=== PATIENT | female | born 1945 | race Caucasian/White ===

== ENCOUNTER 2024-02-04 15:14 | Emergency (ER) | payer OTHER ==
[2024-02-04] MEDS ORDERED: DERMABOND SKIN ADHESIVE TOP ONE (15:23)
--- NOTE | 2024-02-04 15:47 | EDPHYS ---
Physician Documentation [facility] Name: Inge Causey Age: 78 yrs Sex: Female : 1945 Arrival Date: 02/04/2024 Time: 15:14 Bed DIS9 Private MD: ED Physician Spenser Reynaga HPI: 02/03 15:40 This 78 yrs old Female presents to ER via EMS with complaints of left lower santos extremity varicose bleeding. Historical: - Allergies: 15:17 PENICILLINS; ap3 15:17 Tetracycline; ap3 - Home Meds: 15:17 Eliquis oral [Active]; ap3 - Immunization history:: Flu vaccine is up to date. - Infectious Disease History:: Denies. - Social history:: Smoking status: Patient denies any tobacco usage or history of. ROS: 15:41 Constitutional: Negative for fever, chills, and weight loss, Eyes: Negative for injury, santos pain, redness, and discharge, ENT: Negative for injury, pain, and discharge, Neck: Negative for injury, pain, and swelling, Cardiovascular: Negative for chest pain, palpitations, and edema, Respiratory: Negative for shortness of breath, cough, wheezing, and pleuritic chest pain, Abdomen/GI: Negative for abdominal pain, nausea, vomiting, diarrhea, and constipation, Back: Negative for injury and pain, : Negative for injury, bleeding, discharge, and swelling, Skin: Negative for injury, rash, and discoloration, Neuro: Negative for headache, weakness, numbness, tingling, and seizure, Psych: Negative for depression, anxiety, suicide ideation, homicidal ideation, and hallucinations, Allergy/Immunology: Negative for hives, rash, and allergies, Endocrine: Negative for neck swelling, polydipsia, polyuria, polyphagia, and marked weight changes, Hematologic/Lymphatic: Negative for swollen nodes, abnormal bleeding, and unusual bruising, 15:41 MS/extremity: Positive for of the left medial malleolus, bleeding vaicose, Exam: 15:41 Constitutional: This is a well developed, well nourished patient who is awake, alert, santos and in no acute distress. Head/Face: Normocephalic, atraumatic. Eyes: Pupils equal round and reactive to light, extra-ocular motions intact. Lids and lashes normal. Conjunctiva and sclera are non-icteric and not injected. Cornea within normal limits. Periorbital areas with no swelling, redness, or edema. ENT: Nares patent. No nasal discharge, no septal abnormalities noted. Tympanic membranes are normal and external auditory canals are clear. Oropharynx with no redness, swelling, or masses, exudates, or evidence of obstruction, uvula midline. Mucous membranes moist. Neck: Trachea midline, no thyromegaly or masses palpated, and no cervical lymphadenopathy. Supple, full range of motion without nuchal rigidity, or vertebral point tenderness. No Meningismus. Chest/axilla: Normal chest wall appearance and motion. Nontender with no deformity. No lesions are appreciated. Cardiovascular: Regular rate and rhythm with a normal S1 and S2. No gallops, murmurs, or rubs. Normal PMI, no JVD. No pulse deficits. Respiratory: Lungs have equal breath sounds bilaterally, clear to auscultation and percussion. No rales, rhonchi or wheezes noted. No increased work of breathing, no retractions or nasal flaring. Abdomen/GI: Soft, non-tender, with normal bowel sounds. No distension or tympany. No guarding or rebound. No evidence of tenderness throughout. Back: No spinal tenderness. No costovertebral tenderness. Full range of motion. Female : Normal external genitalia. Skin: Warm, dry with normal turgor. Normal color with no rashes, no lesions, and no evidence of cellulitis. Neuro: Awake and alert, GCS 15, oriented to person, place, time, and situation. Cranial nerves II-XII grossly intact. Motor strength 5/5 in all extremities. Sensory grossly intact. Cerebellar exam normal. Normal gait. Psych: Awake, alert, with orientation to person, place and time. Behavior, mood, and affect are within normal limits. 15:41 Musculoskeletal/extremity: Extremities: grossly normal except: decreased ROM, ROM: full active range of motion, full passive range of motion, Circulation is intact in all extremities. Sensation intact. Compartment Syndrome exam of affected extremity: is normal. Weight bearing: able to fully bear weight, DVT Exam: No signs of deep vein thrombosis. no pain, no swelling, no tenderness, negative Homans' sign noted on exam, no appreciated bluish discoloration, no erythema, no increased warmth, Vital Signs: 15:14 Weight 104.33 kg; Height 5 ft. 8 in. ; Pain 0/10; ap3 15:14 Body Mass Index 34.97 (104.33 kg, 172.72 cm) ap3 15:14 Pain Scale: Adult ap3 Laceration: 15:43 Wound Repair of .0cm ( 0.0in ) subcutaneous laceration to left medial malleolus. santos varicose bleeding. Distal neuro/vascular/tendon intact. Anesthesia: none with 0 mls of none. Wound prep: Moderate cleansing with betadine by me. Skin closed with 1 dermabond Adhesive skin closure using Dermabond. Dressed with non-adherent dressing. Patient tolerated well. MDM: 15:15 Patient medically screened. santos 15:45 Differential diagnosis: contusion, abrasion. Data reviewed: vital signs, nurses notes. santos Consideration of Admission/Observation Escalation of care including admission/observation considered. I considered the following discharge prescriptions or medication management in the emergency department Medications were administered in the Emergency Department. See MAR. Test considered but Not performed: Labs: no labs , no x rays. Care significantly affected by the following chronic conditions: Diabetes, Hypertension, Obesity, eliquis. 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 Followup: santos - With: Private Physician - When: 2 - 3 days - Reason: Recheck today's complaints, Continuance of care, Re-evaluation by your physician Discharge Instructions: - Discharge Summary Sheet santos - Varicose Veins santos - Bleeding Varicose Veins santos - Tissue Adhesive Wound Care, [id number] santos - Nonsurgical Procedures for Varicose Veins santos Forms: - Medication Reconciliation Form santos - Antibiotic Education santos - Prescription Opioid Use santos - Patient Portal Instructions santos - Leadership Thank You Letter santos Signatures: Spenser Reynaga MD MD cha Prokisch, Amanda RN RN ap3
--- NOTE | 2024-02-04 15:47 | ER ---
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 patient is on blood thinners and EMS reports the bleeding was not controlled on their arrival. EMS did get the bleeding controlled prior to arriving to the ED. Coronavirus screen: At this time, the client does not indicate any symptoms associated with coronavirus-19. Ebola Screen: No symptoms or risks identified at this time. Initial Sepsis Screen: Does the patient meet any 2 criteria? No. Patient's initial sepsis screen is negative. Does the patient have a suspected source of infection? No. Patient's initial sepsis screen is negative. Risk Assessment: Do you want to hurt yourself or someone else? Patient reports no desire to harm self or others. Onset of symptoms was February 04, 2024. 15:14 Method Of Arrival: EMS: [facility] ap3 15:14 Acuity: AFUA 4 ap3 15:19 Care prior to arrival: wound care to left ankle. ap3 Triage Assessment: 15:18 General: Appears in no apparent distress. Behavior is calm, cooperative, appropriate ap3 for age. Pain: Denies pain. Neuro: Level of Consciousness is awake, alert, obeys commands, Oriented to person, place, time, situation. Cardiovascular: Patient's skin is warm and dry. Respiratory: Airway is patent Respiratory effort is even, unlabored, Respiratory pattern is regular, symmetrical. Derm: Wound noted left medial malleolus. Historical: - Allergies: 15:17 PENICILLINS; ap3 15:17 Tetracycline; ap3 - Home Meds: 15:17 Eliquis oral [Active]; ap3 - Immunization history:: Flu vaccine is up to date. - Infectious Disease History:: Denies. - Social history:: Smoking status: Patient denies any tobacco usage or history of. Screenin:51 [facility] ED Fall Risk Assessment (Adult) History of falling in the last 3 months, ap3 including since admission No falls in past 3 months (0 pts) Confusion or Disorientation No (0 pts) Intoxicated or Sedated No (0 pts) Impaired Gait No (0 pts) Mobility Assist Device Used No (0 pt) Altered Elimination No (0 pt) Score/Fall Risk Level 0 - 2 = Low Risk Oriented to surroundings, Maintained a safe environment, Educated pt \T\ family on fall prevention, incl call for assistance when getting out of bed, Assessed \T\ reinforced patient's understanding of fall precautions, Provided non-skid footwear, Hourly rounding (assess needs \T\ fall precautionary measures) done, Used ambulatory aids as needed (educated on \T\ assisted with), Used gait belt as appropriate. Abuse screen: Denies threats or abuse. Nutritional screening: No deficits noted. Tuberculosis screening: No symptoms or risk factors identified. Vital Signs: 15:14 Weight 104.33 kg; Height 5 ft. 8 in. ; Pain 0/10; ap3 15:14 Body Mass Index 34.97 (104.33 kg, 172.72 cm) ap3 15:14 Pain Scale: Adult ap3 ED Course: 15:14 Patient arrived in ED. ap3 15:15 Spenser Reynaga MD is Attending Physician. [facility] 15:17 Triage completed. ap3 15:19 Arm band placed on right wrist. ap3 15:20 Patient has correct armband on for positive identification. ap3 15:51 Assist provider with laceration repair on left medial malleolus using Dermabond. ap3 Performed by Spenser Reynaga MD Dressed with 4X4s. 15:52 Provided Education on: wound care. ap3 15:52 Patient did not have IV access during this emergency room visit. ap3 Administered Medications: No medications were administered Medication: 15:52 VIS not applicable for this client. ap3 Outcome: 15:47 Discharge ordered by . [facility] 15:52 Discharged to home via wheelchair, with family, ap3 15:52 Condition: good 15:52 Discharge instructions given to patient, Instructed on discharge instructions, follow up and referral plans. Demonstrated understanding of instructions, follow-up care, 15:52 Patient left the ED. ap3 Signatures: Spenser Reynaga MD MD cha Prokisch, Amanda RN RN ap3
== END 2024-02-04 15:52 | disposition home or self-care (01) ==
LOC: ER 15:14
PROC: 0HQNXZZ Repair Left Foot Skin, External Approach (ICD-10-PCS; principal; 2024-02-04)
DX: I83.892 Varicose veins of left lower extremity with other complications (principal); Z79.01 Long term (current) use of anticoagulants
CPT/HCPCS: 99283